=== PATIENT | female | born 1965 | race Caucasian/White ===

== ENCOUNTER 2021-11-29 19:37 | Emergency (ER) | payer OTHER ==
[~2021-11-29 19:37] MED LIST: DICLOFENAC SODI75 MG PO; MAXZIDE 37.5 M1 EACH PO; NEURONTIN300 MG PO; PRINIVIL10 MG PO
[2021-11-29 20:38] LABS: BASOPHIL 0.4 % (0-2); EOSINOPHIL 0 % (0-5); HCT 39.6 % (37.0-47.0); HGB 12.6 g/dl (12.5-16.0); LYMPHOCYTE 18.9 % (15-48); MCH 27.3 pg (25.0-31.0); MCHC 31.8 g/dL (32.0-36.0); MCV 85.9 fL (78.0-100.0); MONOCYTE 17.4 % (0-12); MPV 10.5 fL (6.0-9.5); NEUTROPHIL 63.1 % (41-80); NRBC 0; PLT 202 K/uL (150-400); RBC 4.61 M/uL (4.20-5.40); RDW 13.7 % (11.5-14.0); WBC 5.2 K/uL (4.0-10.5)
[2021-11-29 20:53] LABS: BUN/CREAT RATIO (CALC) 14.7 RATIO; CREATININE 0.75 mg/dL (0.51-0.95); POTASSIUM 3.2 mmol/L (3.5-5.1)
[2021-11-29 21:08] LABS: INFLUENZA A NAA NEGATIVE (NEGATIVE)
[2021-11-29 21:10] LABS: CORONAVIRUS 2019 SARS-COV-2 POSITIVE (NEGATIVE)
[2021-11-29 21:54] LABS: LACTIC ACID 0.7 mmol/L (0.4-1.9)
[2021-11-30] MEDS ORDERED: PROTONIX 40MG T40 MG PO (01:15)
== END 2021-11-30 01:38 | disposition home or self-care (01) ==
LOC: FER 19:37
PROVIDERS: Nurse Practitioner Family
DX: U07.1 COVID-19 (principal); R07.89 Other chest pain; E87.6 Hypokalemia; I10 Essential (primary) hypertension; Z88.8 Allergy status to other drugs, medicaments and biological substances; Z79.899 Other long term (current) drug therapy
CPT/HCPCS: 36415; 71045; 71275; 80048; 83605; 84145; 84484; 85025; 85379; 87040; 93005; 94640; 94664; J2270; J2405; Q9967; U0002

== ENCOUNTER 2021-12-05 10:31 | Inpatient (IN) | payer OTHER ==
[~2021-12-05] VITALS: Ht 167.6 cm; Wt 118.5 kg
[~2021-12-05 10:31] MED LIST changes: +PROTONIX 40MG T40 MG PO
[2021-12-05 14:48] LABS: BASOPHIL 0.2 % (0-2); EOSINOPHIL 0 % (0-5); HCT 45.4 % (37.0-47.0); HGB 14.4 g/dl (12.5-16.0); LYMPHOCYTE 13.4 % (15-48); MCH 27.1 pg (25.0-31.0); MCHC 31.7 g/dL (32.0-36.0); MCV 85.5 fL (78.0-100.0); MONOCYTE 9.3 % (0-12); MPV 11.4 fL (6.0-9.5); NEUTROPHIL 76.8 % (41-80); NRBC 0; PLT 203 K/uL (150-400); RBC 5.31 M/uL (4.20-5.40); RDW 13.6 % (11.5-14.0); WBC 6.3 K/uL (4.0-10.5)
[2021-12-05 15:40] LABS: ALBUMIN 3.6 g/dL (3.4-5.0); BILIRUBIN - TOTAL 0.4 mg/dL (0.2-1.0); BUN/CREAT RATIO (CALC) 15.2 RATIO; CREATININE 1.38 mg/dL (0.51-0.95); GLOBULIN (CALCULATION) 3.7 g/dL; POTASSIUM 3.6 mmol/L (3.5-5.1); TOTAL PROTEIN 7.3 g/dL (6.4-8.2)
[2021-12-05 15:44] LABS: BILIRUBIN 1+ mg/dL (NEGATIVE); BLOOD NEGATIVE Ery/uL (NEGATIVE); CLARITY CLEAR (CLEAR); COLOR YELLOW (YELLOW); GLUCOSE (U) NORMAL (NORMAL); LEUKOCYTES NEGATIVE Leu/uL (NEGATIVE); NITRITE NEGATIVE (NEGATIVE); PROTEIN 2+ mg/dL (NEGATIVE); SPECIFIC GRAVITY >=1.030 (1.001-1.030); pH 5.5 (5.0-9.0)
[2021-12-05 16:01] LABS: BACTERIA 2+
[2021-12-05 16:02] LABS: SQUAMOUS EPITHELIAL CELLS 20-50
[2021-12-05] MEDS ORDERED: PRINIVIL20 MG PO (22:44)
[2021-12-06 07:11] LABS: BASOPHIL 0 % (0-2); EOSINOPHIL 0 % (0-5); HCT 36.9 % (37.0-47.0); HGB 11.8 g/dl (12.5-16.0); MCH 27.4 pg (25.0-31.0); MCV 85.6 fL (78.0-100.0); MONOCYTE 9.3 % (0-12); MPV 10.5 fL (6.0-9.5); NEUTROPHIL 69.4 % (41-80); NRBC 0; PLT 149 K/uL (150-400); RBC 4.31 M/uL (4.20-5.40); RDW 13.4 % (11.5-14.0)
[2021-12-06 08:19] LABS: ALBUMIN 2.9 g/dL (3.4-5.0); BILIRUBIN - TOTAL 0.2 mg/dL (0.2-1.0); BUN/CREAT RATIO (CALC) 20.7 RATIO; C-REACTIVE PROTEIN 2.7 mg/dL (<=0.90); CREATININE 0.87 mg/dL (0.51-0.95); GLOBULIN (CALCULATION) 3.3 g/dL; MAGNESIUM 1.8 mg/dL (1.8-2.4); PHOSPHORUS 3.4 mg/dL (2.6-4.7); TOTAL PROTEIN 6.2 g/dL (6.4-8.2)
[2021-12-06 08:21] LABS: POTASSIUM 3.6 mmol/L (3.5-5.1)
[2021-12-07 06:56] LABS: BASOPHIL 0.3 % (0-2); EOSINOPHIL 0 % (0-5); HCT 35.9 % (37.0-47.0); HGB 11.2 g/dl (12.5-16.0); LYMPHOCYTE 38.2 % (15-48); MCH 26.8 pg (25.0-31.0); MCHC 31.2 g/dL (32.0-36.0); MCV 85.9 fL (78.0-100.0); MONOCYTE 14.2 % (0-12); MPV 10.8 fL (6.0-9.5); NRBC 0; PLT 137 K/uL (150-400); RBC 4.18 M/uL (4.20-5.40); RDW 13.4 % (11.5-14.0); WBC 3.9 K/uL (4.0-10.5)
[2021-12-07 07:04] LABS: IRON % SATURATION 13.8 %SAT (20-50)
[2021-12-07 07:32] LABS: BUN/CREAT RATIO (CALC) 16.9 RATIO; CREATININE 0.89 mg/dL (0.51-0.95); POTASSIUM 3.6 mmol/L (3.5-5.1)
[2021-12-07] MEDS ORDERED: AZITHROMYCIN250 MG PO (09:26)
[2021-12-07] MEDS ORDERED: FEOSOL325 MG PO (09:33)
[2021-12-08 06:49] LABS: BASOPHIL 0.4 % (0-2); EOSINOPHIL 0 % (0-5); HCT 36.7 % (37.0-47.0); HGB 11.9 g/dl (12.5-16.0); LYMPHOCYTE 39.6 % (15-48); MCH 27.6 pg (25.0-31.0); MCHC 32.4 g/dL (32.0-36.0); MCV 85.2 fL (78.0-100.0); MONOCYTE 14.9 % (0-12); MPV 10.7 fL (6.0-9.5); NEUTROPHIL 44.4 % (41-80); NRBC 0; PLT 172 K/uL (150-400); RBC 4.31 M/uL (4.20-5.40); RDW 13.3 % (11.5-14.0); WBC 2.8 K/uL (4.0-10.5)
[2021-12-08 09:08] LABS: BUN/CREAT RATIO (CALC) 18.3 RATIO; CREATININE 0.71 mg/dL (0.51-0.95); POTASSIUM 3.1 mmol/L (3.5-5.1)
== END 2021-12-08 16:03 | disposition home or self-care (01) | DRG 177 ==
LOC: FER 10:31 → FMS 19:31
PROVIDERS: Family Medicine; Nurse Practitioner; Physician Assistant; ADMIT Internal Medicine
PROC: XW033E5 Introduction of Remdesivir Anti-infective into Peripheral Vein, Percutaneous Approach, New Technology Group 5 (ICD-10-PCS; principal; 2021-12-05)
PROC: 8E0ZXY6 Isolation (ICD-10-PCS; 2021-12-05)
DX: U07.1 COVID-19 (principal); J12.82 Pneumonia due to coronavirus disease 2019; J96.01 Acute respiratory failure with hypoxia; J15.9 Unspecified bacterial pneumonia; N17.9 Acute kidney failure, unspecified; D61.818 Other pancytopenia; D50.9 Iron deficiency anemia, unspecified; G47.33 Obstructive sleep apnea (adult) (pediatric); I10 Essential (primary) hypertension; M19.90 Unspecified osteoarthritis, unspecified site; Z88.8 Allergy status to other drugs, medicaments and biological substances; Z90.49 Acquired absence of other specified parts of digestive tract; Z98.890 Other specified postprocedural states; Z79.899 Other long term (current) drug therapy
CPT/HCPCS: 36415; 71045; 80048; 80053; 81001; 82607; 82728; 83540; 83550; 83605; 83615; 83735; 84100; 84145; 84484; 85025; 86140; 87040; 93005; 94010; 94640; C9399; J0456; J0696; J1100; J1650; J2405; J7030; J7050; J7120; J8540